=== PATIENT | male | born 1955 | race Caucasian/White ===

== ENCOUNTER 2019-07-29 13:17 | Outpatient (CLI) | payer BC ==
--- NOTE | 2019-07-29 13:50 | RAD ---
Exam: 3 views left calcaneus HISTORY: Pain. Calcaneal pain x4 weeks. Patient fell 4 weeks ago. FINDINGS: No fracture, cortical irregularity or periosteal reaction. Subtalar joint space is maintain ed. No significant bony outgrowth at the plantar aponeurosis insertion site. IMPRESSION: No acute abnormality.
== END 2019-07-29 13:18 | disposition home or self-care (01) ==
LOC: BICRAD 13:17
PROVIDERS: ATTEND Podiatrist
DX: M72.2 Plantar fascial fibromatosis (principal); M79.672 Pain in left foot

== ENCOUNTER 2020-09-28 | Outpatient (CLI) | payer BC | END 2020-09-28 08:17 | disposition home or self-care (01) ==

== ENCOUNTER 2020-10-03 09:34 | Day surgery (SDC) | payer BC ==
[2020-10-02 11:34] VITALS: BMI 32.6
[2020-10-03] MEDS ORDERED: Bupivacaine PF 0.5% 30 ML VIAL ONE ×2 (11:16→12:04)
[2020-10-03] MEDS ORDERED: Betamet Acet/Betamet Na Ph 30 MG/5 ML VIAL ONE (11:16)
[2020-10-03] MEDS ORDERED: Bacitracin Zinc Ointment 30 gm TUBE ONE ×2 (11:17→12:04)
[2020-10-03] MEDS ORDERED: Neomycin-Polymyxin 1 ML AMP ONE ×2 (11:17→12:04)
[2020-10-03] MEDS ORDERED: Ondansetron PF 4 MG/2 ML Vial ONE (12:29)
[2020-10-03] MEDS ORDERED: ePHEDrine 50 MG/ML VIAL ONE (12:29)
[2020-10-03] MEDS ORDERED: Lidocaine 1% PF 5 ML VIAL ONE (12:29)
[2020-10-03] MEDS ORDERED: PROPOFOL 200 MG/20 ML VIAL ONE (12:29)
[2020-10-03] MEDS ORDERED: Ketorolac Tromethamine 30 MG/ML VIAL ONE (12:29)
[2020-10-03] MEDS ORDERED: Dexamethasone 20 MG/5 ML VIAL ONE (12:29)
== END 2020-10-03 14:53 | disposition home or self-care (01) ==
LOC: SDC 09:34
PROVIDERS: ATTEND Orthopaedic Surgery Hand Surgery
PROC: 01N50ZZ Release Median Nerve, Open Approach (ICD-10-PCS; principal; 2020-10-03)
DX: G56.01 Carpal tunnel syndrome, right upper limb (principal); M19.90 Unspecified osteoarthritis, unspecified site; I10 Essential (primary) hypertension; G70.00 Myasthenia gravis without (acute) exacerbation; E66.9 Obesity, unspecified; Z68.32 Body mass index [BMI] 32.0-32.9, adult; Z79.1 Long term (current) use of non-steroidal anti-inflammatories (NSAID); Z79.899 Other long term (current) drug therapy
CPT/HCPCS: J0690; J0702; J1100; J1885; J2405; J2704; J3490; S0020

== ENCOUNTER 2022-05-29 10:28 | Outpatient (CLI) | payer BC | END 2022-05-29 10:29 | disposition home or self-care (01) | LOC: TBSIIMAG 10:28 | PROVIDERS: ATTEND Anesthesiology Pain Medicine | DX: M43.16 Spondylolisthesis, lumbar region (principal); M47.816 Spondylosis without myelopathy or radiculopathy, lumbar region | CPT/HCPCS: 72110; 72148 ==